=== PATIENT | male | born 1980 | race Hispanic/Latino ===

== ENCOUNTER 2020-03-26 23:53 | Emergency (ER) | payer SELFPAY ==
[2020-03-27 00:27] LABS: Absolute Lymphocytes (CBC) 2.3 K/uL (0.7-4.9); Basophils % 0.5 % (0-1.3); Hematocrit 43.7 % (39.6-49.0); MPV 8.4 fL (7.6-11.3); RBC Red Blood Cell Count 4.58 M/uL (4.33-5.43)
[2020-03-27 00:44] LABS: ALT/SGPT 122 U/L (12-78); AST/SGOT 65 U/L (15-37); Alkaline Phosphatase 85 U/L (45-117); BUN Blood Urea Nitrogen 10 mg/dL (7-18); Bicarbonate 24 mmol/L (21-32); Bilirubin Direct 0.1 mg/dL (0-0.2); Bilirubin Total 0.3 mg/dL (0.2-1.0); Glucose Level 118 mg/dL (74-106); Magnesium 2.4 mg/dL (1.8-2.4); NT PRO-BNP 24 pg/mL (<125); Potassium 3.4 mmol/L (3.5-5.1); Sodium Level 142 mmol/L (136-145); Troponin (Emerg Dept Use Only) < 0.02 ng/mL (0.0-0.045)
[2020-03-27 01:04] LABS: Urine Blood NEGATIVE (NEG); Urine Glucose NEGATIVE (NEG); Urine Protein NEGATIVE (NEG); Urine pH 5.5 (5.0-7.0)
[2020-03-27 01:08] LABS: Barbiturates NEGATIVE (NEGATIVE); Benzodiazepines NEGATIVE (NEGATIVE); Cocaine NEGATIVE (NEGATIVE); METHAMPHETAM NEGATIVE (NEGATIVE); Methadone NEGATIVE (NEGATIVE); Opiates NEGATIVE (NEGATIVE); Phencyclidine NEGATIVE (NEGATIVE); THC Cannibis NEGATIVE (NEGATIVE)
[2020-03-27 01:12] LABS: Protime INR 0.99
--- NOTE | 2020-03-27 02:18 | ER ---
Nurse's Notes [facility] Name: Sharath Nuñez Age: 39 yrs Sex: Male : 1980 Arrival Date: 03/26/2020 Time: 23:54 Bed 7 Private MD: Diagnosis: Other chest pain;Alcohol use, unspecified with intoxication, uncomplicated Presentation: 03/26 23:54 Chief complaint: EMS states: PATIENT IS GOING THROUGH SOME FAMILY ISSUES. PATIENT IS rv CRYING UPON ARRIVAL. CHEST PAIN IS ABSENT AT THE MOMENT BUT DESCRIBED IT PALPITATIONS. PATIENT WAS FOUND LEANING FORWARD HOLDING HIS CHEST. ADMITTED TO HAVE TAKEN SOME ENHANCEMENT MEDICINE AND FEW BOTTLES OF BEER. PATIENT WAS IN HALFWAY FOR MORE THAN ONE DAY LAST WEEK. Coronavirus screen: Patient denies a cough. Patient denies shortness of breath or difficulty breathing. Patient denies measured and/or subjective temperature greater than 100.4F prior to today's visit. Patient denies travel on a cruise ship or to a country the [facility] currently lists as an affected area. Patient denies contact with known and/or suspected case of COVID-19. PATIENT WAS IN HALFWAY LAST WEEK FOR MORE THAN ONE DAY. Ebola Screen: No symptoms or risks identified at this time. Initial Sepsis Screen: Does the patient meet any 2 criteria? No. Patient's initial sepsis screen is negative. Does the patient have a suspected source of infection? No. Patient's initial sepsis screen is negative. Risk Assessment: Do you want to hurt yourself or someone else? Patient reports no desire to harm self or others. Onset of symptoms was March 26, 2020 at 23:30. 23:54 Method Of Arrival: EMS: [facility] rv 23:54 Acuity: MAXIME 3 rv Triage Assessment: 23:59 General: Appears uncomfortable, Behavior is crying. Pain: Denies pain. Neuro: Level of rv Consciousness is awake, alert, obeys commands, Oriented to person, place. Cardiovascular: Reports chest pain, palpitations, since 30 MINUTES AGO Patient's skin is warm and dry. Rhythm is sinus tachycardia. Respiratory: Airway is compromised Breath sounds are clear bilaterally. Derm: Skin is intact. Historical: - Allergies: 23:59 No Known Allergies; rv - Home Meds: 23:59 None [Active]; rv - PMHx: 23:59 None; rv - PSHx: 23:59 None; rv - Immunization history:: Adult Immunizations up to date. - Social history:: Smoking status: Patient/guardian denies using tobacco, the patient reports quitting approximately 10 years ago. Screenin/18 00:01 Abuse screen: Denies threats or abuse. Denies injuries from another. Nutritional rv screening: No deficits noted. Tuberculosis screening: No symptoms or risk factors identified. Fall Risk None identified. Assessment: 00:01 Pain: Pain does not radiate. Pain began 30 min ago. rv 02:03 Reassessment: Patient appears in no apparent distress at this time. Patient and/or mg2 family updated on plan of care and expected duration. Pain level reassessed. Patient is alert, oriented x 3, equal unlabored respirations, skin warm/dry/pink. 02:49 Reassessment: Patient denies pain at this time. Patient states feeling better. Patient mg2 states symptoms have improved. 03:26 Reassessment: pt called from home, reports that he thought his wallet was at his home, but he is unable to find it. reports calling police in they did not have the wallet. instructed pt that I will call EMS to see if they know the whereabouts of the wallet. spoke with [facility] who reports the crew consisting of Jevon did not have any belonging of pt while en route to facility. primary RN Ritesh states no belongins were with pt upon arrival to this ER. pt updated, states that he also had the wallet at a super market prior to calling EMS for support. 03:36 Reassessment: pt called back, reports finding his wallet at his home under a bed. sg Vital Signs: 03/26 23:54 BP 147 / 102; Pulse 96; Resp 18; Temp 98.1; Pulse Ox 98% ; Weight 104.33 kg; Height 5 rv ft. 7 in. (170.18 cm); 03/27 01:07 BP 129 / 79; Pulse 98; Resp 18; Pulse Ox 100% on R/A; mg2 02:03 BP 144 / 86; Pulse 96; Resp 18; Pulse Ox 98% on R/A; mg2 03/26 23:54 Body Mass Index 36.02 (104.33 kg, 170.18 cm) rv ED Course: 03/26 23:54 Patient arrived in ED. ds1 23:54 Sami Jacques, JAMES is Primary Nurse. rv 23:55 Rafa Juarez MD is Attending Physician. tw4 23:58 Triage completed. rv 23:59 Arm band placed on Patient placed in the treatment room, on a stretcher, Patient rv notified of wait time. 03/27 00:01 Patient has correct armband on for positive identification. traffic monitor specialist on. Pulse rv ox on. NIBP on. 00:01 No provider procedures requiring assistance completed. Patient maintains SpO2 rv saturation greater than 95% on room air. 00:10 Inserted saline lock: 20 gauge in right antecubital area, using aseptic technique. mg2 Blood collected. 00:29 XRAY Chest (1 view) In Process Unspecified. EDMS 02:50 IV discontinued, intact, bleeding controlled, No redness/swelling at site. Pressure mg2 dressing applied. Administered Medications: No medications were administered Outcome: 02:18 Discharge ordered by MD. tw4 02:50 Discharged to home ambulatory. mg2 02:50 Condition: stable 02:50 Discharge instructions given to patient, Instructed on discharge instructions, follow up and referral plans. Demonstrated understanding of instructions, follow-up care. 02:53 Patient left the ED. mg2 Signatures: Dispatcher [employer] EDMS Garrett Banks RN RN Leeann Barry ds1 Rafa Juarez MD MD tw4 Joel Moralez RN RN mg2 Sami Jacques RN RN rv Corrections: (The following items were deleted from the chart) 03:36 03:26 Reassessment: pt called from home, reports that he thought his wallet was at his home, but he is unable to find it. reports calling police in they did not have the wallet. instructed pt that I will call EMS to see if they know the whereabouts of the wallet. spoke with [facility] who reports the crew consisting of Jevon did not have any belonging of pt while en route to facility. primary RN Ritesh states no belongins were with pt upon arrival to this ER. pt updated, states that he also had the wallet at a [employer] market prior to calling EMS for support
--- NOTE | 2020-03-27 02:19 | EDPHYS ---
Physician Documentation [facility] Name: Sharath Nuñez Age: 39 yrs Sex: Male : 1980 Arrival Date: 03/26/2020 Time: 23:54 Bed 7 Private MD: ED Physician Rafa Juarez HPI: 03/27 00:12 This 39 yrs old Male presents to ER via EMS with complaints of Chest Pain. tw4 00:12 The patient or guardian reports chest pain that is located primarily in the anterior tw4 chest wall, left. The pain does not radiate. Associated signs and symptoms: The patient has no apparent associated signs or symptoms. The chest pain is described as dull. Duration: The patient or guardian reports a single episode. Modifying factors: The symptoms are alleviated by nothing. the symptoms are aggravated by nothing. The patient has not experienced similar symptoms in the past. Historical: - Allergies: 03/26 23:59 No Known Allergies; rv - Home Meds: 23:59 None [Active]; rv - PMHx: 23:59 None; rv - PSHx: 23:59 None; rv - Immunization history:: Adult Immunizations up to date. - Social history:: Smoking status: Patient/guardian denies using tobacco, the patient reports quitting approximately 10 years ago. ROS: 03/27 00:12 Constitutional: Negative for fever, chills, and weight loss, Eyes: Negative for injury, tw4 pain, redness, and discharge, Respiratory: Negative for shortness of breath, cough, wheezing, and pleuritic chest pain, Abdomen/GI: Negative for abdominal pain, nausea, vomiting, diarrhea, and constipation, Back: Negative for injury and pain, MS/Extremity: Negative for injury and deformity, Skin: Negative for injury, rash, and discoloration, Neuro: Negative for headache, weakness, numbness, tingling, and seizure. Cardiovascular: Positive for chest pain, Negative for edema, orthopnea, palpitations, paroxysmal nocturnal dyspnea. Exam: 00:12 Constitutional: This is a well developed, well nourished patient who is awake, alert, tw4 and in no acute distress. Head/Face: Normocephalic, atraumatic. Chest/axilla: Normal chest wall appearance and motion. Nontender with no deformity. No lesions are appreciated. Cardiovascular: Regular rate and rhythm with a normal S1 and S2. No gallops, murmurs, or rubs. Normal PMI, no JVD. No pulse deficits. Respiratory: Lungs have equal breath sounds bilaterally, clear to auscultation and percussion. No rales, rhonchi or wheezes noted. No increased work of breathing, no retractions or nasal flaring. Abdomen/GI: Soft, non-tender, with normal bowel sounds. No distension or tympany. No guarding or rebound. No evidence of tenderness throughout. Back: No spinal tenderness. No costovertebral tenderness. Full range of motion. MS/ Extremity: Pulses equal, no cyanosis. Neurovascular intact. Full, normal range of motion. Neuro: Awake and alert, GCS 15, oriented to person, place, time, and situation. Cranial nerves II-XII grossly intact. Motor strength 5/5 in all extremities. Sensory grossly intact. Cerebellar exam normal. Normal gait. Vital Signs: 03/26 23:54 BP 147 / 102; Pulse 96; Resp 18; Temp 98.1; Pulse Ox 98% ; Weight 104.33 kg; Height 5 rv ft. 7 in. (170.18 cm); 03/27 01:07 BP 129 / 79; Pulse 98; Resp 18; Pulse Ox 100% on R/A; mg2 02:03 BP 144 / 86; Pulse 96; Resp 18; Pulse Ox 98% on R/A; mg2 03/26 23:54 Body Mass Index 36.02 (104.33 kg, 170.18 cm) rv MDM: 03/26 23:55 Patient medically screened. tw4 03/27 02:14 Differential diagnosis: acute myocardial infarction, acute pericarditis, Cholelithiasis tw4 costochondritis, pericarditis, pneumonia, pneumothorax, pulmonary embolus, unstable angina. HEART Score: History: Slightly Suspicious (0), ECG: Normal (0), Age: < or = 45 years (0), Risk Factors: No Risk Factors Known (0), Troponin: < or = 1 x Normal Limit (0), Total Score = 0. Data reviewed: vital signs, nurses notes. Data interpreted: manager monitoring: rhythm is regular, Pulse oximetry: Interpretation: normal. Counseling: I had a detailed discussion with the patient and/or guardian regarding: the historical points, exam findings, and any diagnostic results supporting the discharge/admit diagnosis. Special discussion: Based on the patient's history, exam, and Dx evaluation, there is no indication for emergent intervention or inpatient Tx. It is understood by the patient/guardian that if the Sx's persist or worsen they need to return immediately for re-evaluation. I discussed with the patient/guardian in detail that at this point there is no indication for admission to the hospital. It is understood, however, that if the symptoms persist or worsen the patient needs to return immediately for re-evaluation. 03/26 23:56 Order name: Acetaminophen 03/26 23:56 Order name: Basic Metabolic Panel 03/26:56 Order name: CBC with Diff; Complete Time: :03/27 01:21 Interpretation: Within normal limits. 03/26:56 Order name: ETOH Level; Complete Time: :20 03/27 01:20 Interpretation: Normal except: ETOH 123. 03/26:56 Order name: Hepatic Function; Complete Time: 01:20 03/27 01:20 Interpretation: Normal except: AST 65; ALT 122; GLOB 4.0; A/G 1.0. 03/26 23:56 Order name: PT-INR; Complete Time: 02:14 03/26:56 Order name: Ptt, Activated; Complete Time: 02:14 03/26 23:56 Order name: Salicylate; Complete Time: :20 03/27 01:20 Interpretation: Within normal limits: SANJAY < 1.7. 03/26:56 Order name: Urine Drug Screen; Complete Time: :20 03/27 01:21 Interpretation: Within normal limits. 03/26 23:56 Order name: Troponin (emerg Dept Use Only); Complete Time: :20 03/27 01:21 Interpretation: Within normal limits: TROPED < 0.02. 03/26 23:56 Order name: Basic Metabolic Panel mg2 03/26 23:56 Order name: CBC with Diff mg2 03/26 23:56 Order name: LFT's mg2 03/26 23:56 Order name: Magnesium; Complete Time: : mg2 03/27 01:21 Interpretation: Within normal limits: MG 2.4. tw4 03/26 23:56 Order name: EKG; Complete Time: 23:58 tw4 03/26 23:56 Order name: Urine Dipstick-Ancillary (obtain specimen); Complete Time: 00:44 tw4 03/26 23:56 Order name: NT PRO-BNP; Complete Time: 01:20 mg2 03/27 01:21 Interpretation: Within normal limits: NT PRO-BNP 24. tw4 03/26 23:56 Order name: PT-INR [facility] [place] 03/26 23:56 Order name: Troponin (emerg Dept Use Only) [facility] [place] 03/26 23:56 Order name: XRAY Chest (1 view) mg2 03/26 23:56 Order name: Cardiac monitoring; Complete Time: 00:15 mg2 03/26 23:57 Order name: Acetaminophen Level; Complete Time: 01:20 EDMS 03/26 23:57 Order name: Basic Metabolic Panel; Complete Time: 01:20 EDMS 03/27 01:20 Interpretation: Normal except: K 3.4; CL 108; GLUC 118. tw4 03/27 00:34 Order name: Urine Dipstick--Ancillary (enter results); Complete Time: 01:20 ar5 03/27 01:21 Interpretation: Within normal limits. tw4 03/27 01:37 Order name: Troponin (emerg Dept Use Only) [facility] 03/26 23:56 Order name: EKG - Nurse/Tech; Complete Time: 00:15 mg2 03/26 23:56 Order name: IV Saline Lock; Complete Time: 00:15 mg2 03/26 23:56 Order name: Labs collected and sent; Complete Time: 00:15 mg2 03/26 23:56 Order name: O2 Per Protocol; Complete Time: 00:15 mg2 03/26 23:56 Order name: O2 Sat Monitoring; Complete Time: 00:15 mg2 EC:12 Rate is 95 beats/min. Rhythm is regular. QRS Walker is Normal. AL interval is normal. QRS tw4 interval is normal. QT interval is normal. No Q waves. T waves are Inverted in leads III, aVF. No ST changes noted. Clinical impression: NSR w/ Non-specific ST/T Changes. Interpreted by me. Reviewed by me. Administered Medications: No medications were administered Disposition: 03/27/20 02:18 Discharged to Home. Impression: Other chest pain, Alcohol use, unspecified with intoxication, uncomplicated. - Condition is Stable. - Discharge Instructions: Alcohol Intoxication, Nonspecific Chest Pain, Pain Without a Known Cause. - Medication Reconciliation Form, Thank You Letter, Antibiotic Education, Prescription Opioid Use form. - Follow up: Private Physician; When: Upon discharge from the Emergency Department; Reason: Recheck today's complaints, Continuance of care, Re-evaluation by your physician. - Problem is new. - Symptoms have improved. Signatures: Dispatcher [employer] [facility] Rafa Juarez MD MD 4 Joel Moralez, RN RN mg2 Sami Jacques, RN RN rv Corrections: (The following items were deleted from the chart) 00:15 03/26 23:56 EKG - Nurse/Tech ordered. [place] [id number] 03/27 00:16 03/26 23:56 IV Saline Lock ordered. [place] [id number] 03/27 00:16 03/26 23:56 Labs collected and sent ordered. [place] [id number] 03/27 00:17 03/26 23:58 Chest Single View+[email or web address] ordered. [facility] 03/27 02:53 02:18 03/27/2020 02:18 Discharged to Home. Impression: Other chest pain; Alcohol use, mg2 unspecified with intoxication, uncomplicated. Condition is Stable. Forms are Medication Reconciliation Form, Thank You Letter, Antibiotic Education, Prescription Opioid Use. Follow up: Private Physician; When: Upon discharge from the Emergency Department; Reason: Recheck today's complaints, Continuance of care, Re-evaluation by your physician. Problem is new. Symptoms have improved. 4
[2020-03-27 02:58] VITALS: TEMP 98.1
[2020-03-27 03:00] VITALS: BP 144/86; O2SAT 98
--- NOTE | 2020-03-27 07:42 | RAD REPORT ---
EXAM DESCRIPTION: RAD - Chest Single View - 03/27/2020 12:28 am CLINICAL HISTORY: CHEST PAIN COMPARISON: None TECHNIQUE: AP portable chest image was obtained 03/27/2020 12:28 am . FINDINGS: Lungs are clear. Heart and vasculature are normal. No measurable pleural effusion and no p neumothorax. No acute bony abnormality seen. No acute aortic findings suspected. IMPRESSION: No acute cardiopulmonary process.
--- NOTE | 2020-03-28 07:03 | EKG ---
Test Date: 2020-03-27 Test Time: 00:07:18 [employer] Supervisor: MEASUREMENT RESULTS: Intervals: Rate: 95 MN: 162 QRSD: 84 QT: 368 QTc: 462 [place]: P: 37 MN: 162 QRS: 24 T: 14 INTERPRETIVE STATEMENTS: Normal sinus rhythm Nonspecific T wave abnormality Prolonged QT Abnormal ECG No previous ECG available for comparison Electronically Signed On 03-28-20 07:00:25 CDT by Lonny Rea
== END 2020-03-27 02:53 | disposition home or self-care (01) ==
LOC: ER 23:53
DX: R07.89 Other chest pain (principal); F10.920 Alcohol use, unspecified with intoxication, uncomplicated
CPT/HCPCS: 36415; 71045; 80048; 80076; 80307; 80320; 80329; 81003; 83735; 83880; 84484; 85025; 85610; 85730; 93005; 99285